=== PATIENT | male | born 1975 | race American Indian/Alaskan Native ===

== ENCOUNTER 2019-10-26 20:04 | Emergency (ER) | payer SELFPAY ==
[2019-10-26 20:51] VITALS: BP 154/97
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
== END 2019-10-26 21:33 | disposition home or self-care (01) ==
LOC: ED 20:04
DX: L03.113 Cellulitis of right upper limb (principal)
CPT/HCPCS: 99282